=== PATIENT | male | born 1960 | race Caucasian/White ===

== ENCOUNTER → 2017-03-23 | Outpatient (CLI) | payer OTHER ==
[~2017-03-23] MED LIST: /MOM400 PO; /TAMS4CA PO; ATOR1TAB19 PO; DOCU100C PO; FLON0.05; FLOV44AE IN; IBUP200T2 PO; LIPI10TA PO; MIRA3350 PO; NEUR600T PO; OXYC-208 PO; ROXI1TAB2 PO; TYLE325T5 PO
--- NOTE | 2017-03-28 09:14 | SLEEPHOME ---
DATE OF STUDY: 03/23/2017 ORDERING PROVIDER: SILVIA Balbuena Diagnostic home sleep testing was performed due to concern for the obstructive sleep apnea syndrome. For testing, a NOX-T3 respiratory monitoring device was used. Continuous record was made of pulse, oxygen saturation, airflow, chest and abdominal strain, and body position. 8 hours and 49 minutes of data were reviewed. There were 6 hours and 23 minutes marked as time in bed. During the interval marked time in bed, there were 57 respiratory events identified of 10 seconds in duration or greater for a respiratory event index of 8.9. The events were primarily obstructive. Baseline pulse rate 53 beats per minute. Pulse rate ranged 46-188. Baseline saturation 92%. Lowest oxygen saturation reliably recorded 87%. Testing was performed in both the supine and nonsupine positions. IMPRESSION: Abnormal home sleep testing with repetitive respiratory events and oxygen desaturation to 87% with a respiratory event index of 8.9 is consistent with the obstructive sleep apnea syndrome. RECOMMENDATION: The patient should be referred for formal sleep evaluation and in-laboratory pressure titration.
== END ==
LOC: M SLEEP HO 15:43
PROVIDERS: ATTEND Nurse Practitioner Adult Health
DX: G47.30 Sleep apnea, unspecified (principal)

== ENCOUNTER → 2018-03-19 | Outpatient (CLI) | payer OTHER ==
[2018-03-19 16:25] LABS: ALBUMIN 3.8 GM/DL (3.2-5.2); ALBUMIN/GLOBULIN RATIO 1.27 (1.00-1.93); ALKALINE PHOSPHATASE 99 U/L (45-117); ALT/SGPT 38 U/L (12-78); ANION GAP 6 MEQ/L (8-16); AST/SGOT 21 U/L (7-37); BILIRUBIN,TOTAL 1.1 MG/DL (0.2-1.0); BLOOD UREA NITROGEN 15 MG/DL (7-18); CALCIUM LEVEL 8.6 MG/DL (8.5-10.1); CARBON DIOXIDE LEVEL 31 MEQ/L (21-32); CHLORIDE LEVEL 106 MEQ/L (98-107); CHOLESTEROL LEVEL 171 MG/DL (<200); CHOLESTEROL RISK RATIO 2.898 (<5); CREATININE FOR GFR 0.85 MG/DL (0.70-1.30); GLOMERULAR FILTRATION RATE > 60.0 (>56); GLUCOSE, FASTING 89 MG/DL (70-100); HDL CHOLESTEROL 59 MG/DL (>40); LDL CHOLESTEROL 93.2 MG/DL (<100); NON-HDL-C 112 MG/DL; POTASSIUM SERUM 3.9 MEQ/L (3.5-5.1); SODIUM LEVEL 143 MEQ/L (136-145); TOTAL PROTEIN 6.8 GM/DL (6.4-8.2); TRIGLYCERIDES LEVEL 94 MG/DL (<150)
== END ==
LOC: M LAB 15:27
DX: E78.5 Hyperlipidemia, unspecified (principal); I10 Essential (primary) hypertension
CPT/HCPCS: 84443

== ENCOUNTER → 2018-09-24 | Outpatient (CLI) | payer OTHER ==
[2018-09-24 15:44] LABS: ALBUMIN 4.3 GM/DL (3.2-5.2); ALT/SGPT 30 U/L (12-78); BLOOD UREA NITROGEN 17 MG/DL (7-18); CALCIUM LEVEL 9.7 MG/DL (8.5-10.1); CARBON DIOXIDE LEVEL 26 MEQ/L (21-32); CHLORIDE LEVEL 100 MEQ/L (98-107); CHOLESTEROL LEVEL 176 MG/DL (<200); CHOLESTEROL RISK RATIO 3.744 (<5); CREATININE FOR GFR 0.91 MG/DL (0.70-1.30); GLOMERULAR FILTRATION RATE > 60.0 (>56); GLUCOSE, FASTING 110 MG/DL (70-100); HDL CHOLESTEROL 47 MG/DL (>40); LDL CHOLESTEROL 111 MG/DL (<100); NON-HDL-C 129 MG/DL; SODIUM LEVEL 136 MEQ/L (136-145); TOTAL PROTEIN 7.1 GM/DL (6.4-8.2); TRIGLYCERIDES LEVEL 90 MG/DL (<150)
== END ==
LOC: M LAB 14:58
PROVIDERS: ATTEND Internal Medicine
DX: E78.5 Hyperlipidemia, unspecified (principal); I10 Essential (primary) hypertension

== ENCOUNTER 2020-07-23 07:26 | Emergency (ER) | payer OTHER ==
[~2020-07-23] VITALS: Ht 172.7 cm; Wt 89.2 kg
[~2020-07-23 07:26] MED LIST changes: -/MOM400 PO; -/TAMS4CA PO; +FLOM0.4C39 PO; +MILK10SU PO
[2020-07-23] MEDS ORDERED: NS 1,000 ML IV ONE (08:00)
[2020-07-23] MEDS ORDERED: FLUTISP (08:12)
[2020-07-23] MEDS ORDERED: ASPI-1 PO (08:12)
[2020-07-23] MEDS ORDERED: NAPR250T4 PO (08:12)
[2020-07-23] MEDS ORDERED: ASMA16.7 INH (08:12)
[2020-07-23] MEDS ORDERED: LISI10TA4 (08:12)
[2020-07-23] MEDS ORDERED: ALBU8.5H (08:12)
[2020-07-23] MEDS ORDERED: ATOR1TAB19 (08:12)
[2020-07-23 08:14] LABS: BASO # 0.1 10^3/uL (0.0-0.2); BASO % 0.8 % (0.0-1.0); EOS # 0.7 10^3/uL (0.0-0.5); EOS % 7.1 % (0.0-3.0); HEMATOCRIT 47.7 % (42.0-52.0); HEMOGLOBIN 15.9 g/dl (13.5-17.5); LYMPH # 2.9 10^3/uL (1.5-5.0); LYMPH % 29.8 % (24.0-44.0); MEAN CORPUSCULAR HEMOGLOBIN 31.1 pg (27.0-33.0); MEAN CORPUSCULAR HGB CONC 33.3 g/dl (32.0-36.5); MEAN CORPUSCULAR VOLUME 93.3 fl (80.0-96.0); MONO % 9.7 % (0.0-5.0); NEUTROPHILS # 5.1 10^3/uL (1.5-8.5); NEUTROPHILS % 52.2 % (36.0-66.0); PLATELET COUNT, AUTOMATED 299 10^3/uL (150-450); RED BLOOD COUNT 5.11 10^6/uL (4.30-6.10); WHITE BLOOD COUNT 9.8 10^3/uL (4.0-10.0)
[2020-07-23 08:50] LABS: ALBUMIN 3.8 GM/DL (3.2-5.2); ALT/SGPT 39 U/L (12-78); BILIRUBIN,DIRECT 0.1 MG/DL (0.0-0.2); BILIRUBIN,TOTAL 0.4 MG/DL (0.2-1.0); BLOOD UREA NITROGEN 18 MG/DL (7-18); CALCIUM LEVEL 8.7 MG/DL (8.8-10.2); CARBON DIOXIDE LEVEL 30 MEQ/L (21-32); CHLORIDE LEVEL 107 MEQ/L (98-107); CREATININE FOR GFR 0.92 MG/DL (0.70-1.30); GLOMERULAR FILTRATION RATE > 60.0 (>49); GLUCOSE, FASTING 111 MG/DL (70-100); LIPASE 118 U/L (73-393); POTASSIUM SERUM 4.2 MEQ/L (3.5-5.1); SODIUM LEVEL 143 MEQ/L (136-145); TOTAL PROTEIN 7.1 GM/DL (6.4-8.2)
[2020-07-23] MEDS ORDERED: ISOVUE-370 76% 100ML VIAL As Ordered ONE (08:58)
--- NOTE | 2020-07-23 09:34 | REP ---
INDICATION: rlq pain, r flank pain, hematuria 2 weeks ago resolved. COMPARISON: Comparison abdomen radiographs October 09, 2013. Comparison pelvic CT study October 10, 2013.. TECHNIQUE: Helical scanning was acquired and 4 mm axial images are re-formatted. Coronal and sagittal MPR images were generated and reviewed. The contrast enhancement dose is 100 mL of intravenous Isovue 370. FINDINGS: Digital preliminary water sander radiograph demonstrates a normal bowel gas pattern and mineralized gallstones in the right upper quadrant within the gallbladder. On axial CT images, the lung bases are clear. The liver is normal in size homogeneous in texture. Spleen is not enlarged. There is a tiny sub cm cyst in the spleen tip inferiorly. Peripherally mineralized large gallstones are seen in the gallbladder. No biliary ductal dilation is observed. Pancreas is unremarkable. There is a small descending duodenal diverticulum. No retroperitoneal mass or adenopathy is observed. Normal adrenal glands are seen. The kidneys enhance symmetrically. There is a sub cm cyst in the upper pole of the left kidney. There is a calcific density in the lower pole of the right kidney measuring 4 mm in diameter consistent with intrarenal nephrolithiasis. There is mild hydronephrosis affecting the right kidney and hydroureter is seen to the level of the 5th lumbar vertebra where there is a obstructing right mid ureteral calculus. Calculus measures 6 mm in greatest diameter. It has an irregular shape on coronal and sagittal MPR images and there is some mild [place] ureteral edema. The distal ureter is normal in caliber. No left ureteral calculus is observed. There are some dystrophic calcifications in the prostate. The bladder is unremarkable. Small and large intestinal bowel loops are normal in the abdomen. There is extensive left colonic diverticulosis without CT evidence of the of diverticulitis. No abdominal wall defect is observed. A normal appendix is seen in the right lower abdomen. IMPRESSION: 1. Mild obstructive uropathy on the right due to an obstructing 6 mm right mid ureteral calculus at the level of the L5 vertebral body. 2. 4 mm nonobstructive intrarenal calculus right kidney. 3. Extensive left colonic diverticulosis without CT evidence of diverticulitis. 4. Cholelithiasis. <Electronically signed by Taz Arias > 07/23/20 0931
[2020-07-23 11:20] VITALS: BP 143/80
[2020-07-23] MEDS ORDERED: LIDOCAINE 2% 5ML JELLY UROJET TOP ONE (11:30)
[2020-07-23] MEDS ORDERED: FLOM0.4C39 PO (11:57)
== END 2020-07-23 12:08 | disposition home or self-care (01) ==
LOC: M ED 07:26
DX: N13.2 Hydronephrosis with renal and ureteral calculous obstruction (principal); K80.20 Calculus of gallbladder without cholecystitis without obstruction; K57.30 Diverticulosis of large intestine without perforation or abscess without bleeding; I10 Essential (primary) hypertension; E78.5 Hyperlipidemia, unspecified; J45.909 Unspecified asthma, uncomplicated; Z79.51 Long term (current) use of inhaled steroids; Z79.899 Other long term (current) drug therapy
CPT/HCPCS: 51701; 74177; 80048; 80076; 81001; 83690; 85025; 99284; Q9967

== ENCOUNTER → 2020-08-16 | Outpatient (CLI) | payer OTHER ==
[~2020-08-16] MED LIST changes: +ALBU8.5H; +ASMA16.7 INH; +ASPI-1 PO; +ATOR1TAB19; +FLUTISP; +LISI10TA4; +NAPR250T4 PO
--- NOTE | 2020-08-16 13:26 | REPPI ---
INDICATION: URETERIC STONE. COMPARISON: CT 07/23/2020. KUB 10/09/2013. TECHNIQUE: AP view of abdomen and pelvis performed. FINDINGS: There is no evidence of bowel obstruction. There is mild to moderate scattered fecal material throughout the colon. A small calcific density just below the right sacroiliac joint could represent a small ureteral calculus. Alternatively this could represent a vascular calcification. More inferiorly there are 2 adjacent phleboliths in the right pelvis. There are mild degenerative changes of the spine. IMPRESSION: Small calcific density just inferior to the right sacroiliac joint may represent a subcentimeter ureteral calculus or a vascular calcification. <Electronically signed by Aydin Harvey > 08/16/20 0032
[2020-08-16 14:26] LABS: APPEARANCE, URINE CLEAR (CLEAR); BACTERIA, URINE AUTO NEGATIVE (NEGATIVE); BILIRUBIN, URINE AUTO NEGATIVE (NEGATIVE); BLOOD, URINE BLOOD NEGATIVE (NEGATIVE); COLOR, URINE YELLOW (YELLOW); GLUCOSE, URINE (UA) AUTO NEGATIVE (NEGATIVE); KETONE, URINE AUTO NEGATIVE (NEGATIVE); LEUKOCYTE ESTERASE, URINE AUTO NEGATIVE (NEGATIVE); NITRITE, URINE AUTO NEGATIVE (NEGATIVE); PROTEIN, URINE AUTO NEGATIVE (NEGATIVE); RBC, URINE AUTO 0 /HPF (0-3); SPECIFIC GRAVITY URINE AUTO 1.018 (1.002-1.035); SQUAMOUS EPITHELIAL CELL UR AU 0 /HPF (0-6); UROBILINOGEN, URINE AUTO 0.2 mg/dL (0.0-2.0); WBC, URINE AUTO 3 /HPF (0-3)
== END ==
LOC: M PLAIMG 12:04
PROVIDERS: ATTEND Urology
DX: N20.1 Calculus of ureter (principal)

== ENCOUNTER → 2020-08-31 | Outpatient (CLI) | payer OTHER ==
[~2020-08-31] MED LIST changes: +LISI10TA22; -LISI10TA4
--- NOTE | 2020-08-31 08:53 | REP ---
INDICATION: DORSALGIA,UNSPECIFIED COMPARISON: None. TECHNIQUE: AP, lateral, bilateral oblique, and coned-down views of the lumbar spine. FINDINGS: Alignment and lordosis maintained. Vertebral bodies are intact. No acute fracture/compression injury or subluxation. No obvious spondylolysis or spondylolisthesis. Moderate multilevel degenerative changes include endplate sclerosis, osteophytosis, and disc space narrowing throughout the visualized lower thoracic and lumbosacral spine. Incidental cholelithiasis. IMPRESSION: Moderate multilevel degenerative spondylosis. Cholelithiasis. <Electronically signed by Pelon Cabezas > 08/31/20 0808
== END ==
LOC: M WUC 08:19
PROVIDERS: ATTEND Internal Medicine
DX: M47.9 Spondylosis, unspecified (principal); M25.78 Osteophyte, vertebrae; K80.20 Calculus of gallbladder without cholecystitis without obstruction

== ENCOUNTER → 2023-04-21 | Outpatient (CLI) | payer OTHER ==
[~2023-04-21] MED LIST changes: -ASMA16.7 INH; +FLUT50SP17; -FLUTISP; +MOME13HF4 INH; +NAPR-849 PO; -NAPR250T4 PO
== END ==
LOC: M SOG 07:54
PROVIDERS: ATTEND Physician Assistant
DX: M79.645 Pain in left finger(s) (principal)

== ENCOUNTER → 2023-08-28 | Outpatient (CLI) | payer OTHER ==
[~2023-08-28] MED LIST changes: -FLUT50SP17; +FLUTISP; +PROHANCE 279.3MG/ML 15ML VIAL ONE; +PROHANCE 279.3MG/ML 5ML VIAL ONE
== END ==
LOC: M PLAIMG 14:46
PROVIDERS: ATTEND Physician Assistant
DX: M71.342 Other bursal cyst, left hand (principal)
CPT/HCPCS: 73220; A9576

== ENCOUNTER 2023-09-07 14:56 | Emergency (ER) | payer OTHER ==
[~2023-09-07] VITALS: Ht 172.7 cm; Wt 89.4 kg
[~2023-09-07 14:56] MED LIST changes: +NIRMATRELVIR/RITONAVIR CO-PACK (EMERGENCY USE AUTH) PO SCH; -PROHANCE 279.3MG/ML 15ML VIAL ONE; -PROHANCE 279.3MG/ML 5ML VIAL ONE
[2023-09-07 20:29] LABS: RSV AMPLIFICATION NEGATIVE (NEGATIVE)
[2023-09-07] MEDS ORDERED: NIRMATRELVIR/RITONAVIR CO-PACK (EMERGENCY USE AUTH) PO SCH (21:00)
[2023-09-07] MEDS ORDERED: OYST500T92 PO (21:17)
[2023-09-07] MEDS ORDERED: ADVA45AE INH (21:17)
[2023-09-07] MEDS ORDERED: MULT-40 PO (21:17)
[2023-09-07] MEDS ORDERED: LISI10TA22 PO (21:17)
[2023-09-07] MEDS ORDERED: SENN1TAB41 PO (21:17)
[2023-09-07] MEDS ORDERED: LORA-931 PO (21:17)
[2023-09-07] MEDS ORDERED: POTA99CA2 PO (21:17)
[2023-09-07] MEDS ORDERED: ATOR1TAB19 PO (21:17)
[2023-09-07] MEDS ORDERED: ASPI-161 PO (21:17)
[2023-09-07] MEDS ORDERED: BUDE32SU6 (21:17)
[2023-09-07] MEDS ORDERED: CAFF200T6 PO (21:17)
[2023-09-07] MEDS ORDERED: ALEV220T22 PO (21:17)
[2023-09-07] MEDS ORDERED: ALBU8.5H INH (21:17)
[2023-09-07] MEDS ORDERED: RISATAB3 PO (21:17)
[2023-09-07] MEDS ORDERED: OMEG10002 PO ×2 (21:17)
[2023-09-07] MEDS ORDERED: OCUVTAB8 PO (21:17)
[2023-09-07] MEDS ORDERED: HOME MED LIST COMPLETE! XX SCH (21:20)
[2023-09-07 21:45] VITALS: BP 135/80; TEMP 98.7; O2SAT 95; O2SAT 96
== END 2023-09-07 21:57 | disposition home or self-care (01) ==
LOC: M ED 14:56
DX: U07.1 COVID-19 (principal); I10 Essential (primary) hypertension; E78.5 Hyperlipidemia, unspecified

== ENCOUNTER → 2024-05-05 | Outpatient (REF) | payer OTHER ==
[~2024-05-05] MED LIST changes: +ADVA45AE INH; +ALBU8.5H INH; +ALEV220T22 PO; +ASPI-615 PO; +BUDE32SU6; +CAFF200T6 PO; +LISI10TA22 PO; +LORA-931 PO; +MULT-40 PO; -NIRMATRELVIR/RITONAVIR CO-PACK (EMERGENCY USE AUTH) PO SCH; +OCUVTAB8 PO; +OMEG10002 PO; +OYST500T92 PO; +POTA99CA2 PO; +RISATAB3 PO; +SENN1TAB85 PO
== END ==
LOC: M SFHCDERM 13:50
PROVIDERS: ATTEND Dermatology
DX: D48.9 Neoplasm of uncertain behavior, unspecified (principal)

== ENCOUNTER → 2024-06-16 | Outpatient (REF) | payer OTHER | LOC: M SFHCDERM 13:55 | PROVIDERS: ATTEND Dermatology | DX: Z51.89 Encounter for other specified aftercare (principal) ==